=== PATIENT | female | born 2000 | race Hispanic/Latino ===

== ENCOUNTER 2019-06-22 21:34 | Inpatient (IN) | payer MEDICAID ==
[~2019-06-22] VITALS: Ht 149.9 cm; Wt 45.9 kg
[2019-06-22 22:32] LABS: BASOPHILS % (AUTO) 0.5 % (0.0-5.0); HEMATOCRIT 37.4 % (36-48); LYMPHOCYTES % (AUTO) 10.5 % (21.0-51.0); MEAN CORPUSCULAR HEMOGLOBIN 26.8 pg (27.0-33.0); MEAN CORPUSCULAR HGB CONC 32.6 g/dL (32.0-36.0); MONOCYTES % (AUTO) 16.8 % (3.0-13.0); NEUTROPHILS % (AUTO) 67.8 % (40.0-77.0); PLATELET COUNT (AUTO) 240 K/uL (130-400); RED BLOOD CELL COUNT(AUTO) 4.56 MIL/uL (4.00-5.50)
[2019-06-22 22:35] LABS: CARBON DIOXIDE 21 mmol/L (21-32); CHLORIDE 101 mmol/L (101-111); CREATININE 0.7 mg/dL (0.5-1.5); GLOMERULAR FILTR. RATE CALC 113 mL/min (>60); GLUCOSE,RANDOM 126 mg/dL (70-105); POTASSIUM 3.2 mmol/L (3.5-5.1); SODIUM SERUM 137 mmol/L (136-145); UREA NITROGEN, BLOOD 11 mg/dL (7-18)
[2019-06-22 22:40] LABS: APPEARANCE,URINE Clear (CLEAR); BILIRUBIN,URINE Negative (NEGATIVE); COLOR,URINE Yellow (YELLOW); GLUCOSE, URINE (UA) Negative (NEGATIVE); KETONES,URINE Negative (NEGATIVE); LEUKOCYTE ESTERASE ,URINE Negative (NEGATIVE); NITRATE,URINE Negative (NEGATIVE); OCCULT BLOOD,URINE Negative (NEGATIVE); PROTEIN,URINE Negative (NEGATIVE); UROBILINOGEN,URINE 0.2 mg/dL (0.2-1.0)
[2019-06-22 22:44] LABS: AMPHET/METH SCREEN,URINE NEGATIVE (NEGATIVE); BARBITURATE SCREEN, URINE NEGATIVE (NEGATIVE); BENZODIAZEPINES SCREEN,URINE NEGATIVE (NEGATIVE); CANNABINOID SCREEN,URINE NEGATIVE (NEGATIVE); COCAINE SCREEN,URINE NEGATIVE (NEGATIVE); OPIATE SCREEN,URINE NEGATIVE (NEGATIVE); PHENCYCLIDINE SCREEN,URINE NEGATIVE (NEGATIVE)
[2019-06-22 22:47] LABS: HCG,QUAL RESULT NEGATIVE (NEGATIVE)
[2019-06-22 22:53] LABS: ALANINE AMINOTRANSFERASE 13 U/L (12-78); ALBUMIN 4.2 g/dL (3.5-5.0); ALCOHOL, BLOOD < 3 mg/dL (0-10); ASPARTATE AMINOTRANSFERASE 17 U/L (10-37); BILIRUBIN,TOTAL 0.2 mg/dL (0.2-1.0)
[2019-06-22 22:58] LABS: SALICYLATE < 2.8 mg/dL (2.8-20.0)
[2019-06-22 22:59] LABS: ACETAMINOPHEN 456 mcg/mL (10-30)
[2019-06-22 23:52] LABS: INR 0.99 (0.85-1.15); PROTHROMBIN TIME 10.7 SEC (9.6-11.6)
[2019-06-22] MEDS ORDERED: ACETYLCYSTEINE 20% 200MG/ML 4ML VIAL ONE (23:58)
[2019-06-22] MEDS ORDERED: ACETYLCYSTEINE 20% 200MG/ML 30ML VIAL ONE (23:58)
[2019-06-23] MEDS ORDERED: ONDANSETRON HCL 4 MG/2 ML VIAL ONE (00:59)
[2019-06-23] MEDS: SODIUM CHLORIDE 0.9% 1000ML 1,000 ML IV SCH ×2 (01:29→07:55)
[2019-06-23] MEDS ORDERED: DiphenhydrAMINE HCL 50 MG/ML VIAL IV PRN (01:30)
[2019-06-23] MEDS ORDERED: ONDANSETRON HCL 4 MG/2 ML VIAL IV PRN (01:30)
[2019-06-23] MEDS ORDERED: SODIUM CHLORIDE 0.9% 1000ML 1,000 ML IV SCH ×2 (01:30)
[2019-06-23] MEDS ORDERED: NITROGLYCERIN 0.4 MG SL TAB SL PRN (01:30)
[2019-06-23] MEDS ORDERED: DEXTROSE 5 % AND 0.9 % NACL 1,000 ML IV ONE (02:20)
[2019-06-23] MEDS ORDERED: ACETYLCYSTEINE 20% 200MG/ML 30ML VIAL ONE (02:56)
[2019-06-23 04:39] VITALS: BP 145/71
[2019-06-23 07:02] LABS: HEMATOCRIT 36.9 % (36-48); MEAN CORPUSCULAR HEMOGLOBIN 26.8 pg (27.0-33.0); MEAN CORPUSCULAR HGB CONC 33.1 g/dL (32.0-36.0); MEAN CORPUSCULAR VOLUME 81.1 fL (80-100); PLATELET COUNT (AUTO) 254 K/uL (130-400); RED BLOOD CELL COUNT(AUTO) 4.55 MIL/uL (4.00-5.50); RED CELL DISTRIBUTION WIDTH 12.7 % (11.0-15.5); WHITE BLOOD COUNT (AUTO) 7.7 K/uL (4.8-10.8)
[2019-06-23 07:16] VITALS: BP_SYST 119; BP_SYST 19; BP_DIAS 77
[2019-06-23] MEDS ORDERED: DEXTROSE 5% IV SCH (07:30)
[2019-06-23] MEDS ORDERED: ACETYLCYSTEINE IV SCH (07:30)
[2019-06-23] MEDS ORDERED: WATER IV SCH (07:30)
[2019-06-23 07:33] LABS: INR 1.12 (0.85-1.15); PARTIAL THROMBOPLASTIN TIME 29.1 SEC (26.3-35.5)
[2019-06-23 07:34] LABS: ALBUMIN 3.7 g/dL (3.5-5.0); BILIRUBIN,TOTAL 0.3 mg/dL (0.2-1.0); CREATININE 0.6 mg/dL (0.5-1.5); MAGNESIUM 1.9 mg/dL (1.80-2.40); POTASSIUM 3.4 mmol/L (3.5-5.1); TOTAL PROTEIN, SERUM 7.6 g/dL (6.0-8.3)
--- NOTE | 2019-06-23 07:48 | NUR ---
1:1 SITTER AT [facility] Addendum: 06/23/19 at 0749 by SHYANNE WHEELER RN RN Amended: Links added.
--- NOTE | 2019-06-23 07:50 | NUR ---
ASSESSMENT PT IS AAOX3 DENIES CP DENIES SOB DENIES NV NO COMPLAINTS RESTING IN BED. BREATHING PATTERN IS EVEN AND UNLABORED. NO VISIBLE SIGNS OF DISTRESS NOTED, CALL LIGHT WITHIN REACH. 1:1 SITTER IS AT BEDSIDE. SUICIDE PRECAUTIONS IN PLACE.
[2019-06-23] MEDS: FAMOTIDINE/PF 20 MG/2 ML VIAL IV SCH ×2 (07:53→19:47)
[2019-06-23] MEDS: ENOXAPARIN SODIUM 30 MG/0.3 ML SQ SCH (07:53)
[2019-06-23 08:20] LABS: BAND NEUTROPHILS % (MANUAL) 1 % (0-2); BASOPHILS % (MANUAL) 1 % (0-2); LYMPHOCYTES % (MANUAL) 18 % (22-44); MAN.DIFF COMMENT-IMPRESSION MANUAL DIFFERENTIAL; MONOCYTES % (MANUAL) 7 % (2-9); PLATELET MORPHOLOGY COMMENT ADEQUATE; REACTIVE LYMPHOCYTES 2 % (0-0); SEGMENTED NEUTROPHILS % 71 % (40-70)
--- NOTE | 2019-06-23 10:55 | NUR ---
LOVENOX GIVEN WITH FEMALE AIDE AT BEDSIDE 1:1 SITTER FEMALE AIDE AT BEDSIDE
[2019-06-23 11:40] VITALS: BP 115/67
[2019-06-23 15:13] VITALS: BP 114/79
--- NOTE | 2019-06-23 16:38 | NUR ---
Overdose BONNIE met with patient. Patient admitted to intentionally taking 80 tablets of Tylenol. Patient states she had gone to see MD earlier due to experiencing cough and fever and had obtained Tylenol to help with symptoms. She admits that she had been planning for a while to harm self but had planned to cut self rather than overdose. She states that she took Tylenol because pills were available to her. Patient admits that this is not her first attempt to kill herself. She informed SW that she had attempted about 6 years ago when she attempted to overdose on Ibuprofen. Patient states she was living with her father at the time and it was father who called hospital and took her to ER. Patient states she attempted to harm self because she felt guilty after she claims she saw her grandfather fall and hurt his head and did nothing to help him for a few minutes. She states she still carries this guilt today and states that grandfather's was her fault. Patient states she has never been blamed for grandfather's but she feels she did not assist fast enough and that is what caused grandfather to . Patient later admitted that she had attempted several other times before and has been at several psychiatric hospitals: [facility], [facility], [facility], [facility] and most recently [facility]. Patient reports that she suffers from Bipolar, Schizophrenia, Major Depression and anxiety. She states she is under the care of Psychiatrist, Shashank Garcia. Patient also states she has been receiving counseling X 2 a [address] from [address], Counselor. Patient also admits to experiencing auditory and visual hallucinations. Patient states she hears "several" voiced speaking to her - insulting her and telling her to harm herself. She states that the only thing that helps her not hear voices is taking showers. Patient also admits to seeing several shadows around her but admits shadows appear more at night than during the day. Patient states she covers her head when she sleeps so she doesn't see the shadows. She reports that she is still able to sleep about 8-10 hours at night and has been eating well. Patient admits to BONNIE that she is still experiencing suicidal ideations and plans to kill herself by cutting herself when she has the opportunity. BONNIE informed patient that once she is medically cleared she can be referred to [facility] or another psychiatric hospital due to her present suicidal ideations. Patient in agreement. Patient presently on 1:1 observation. SW will continue to follow up with patient.
[2019-06-23 19:36] VITALS: BP 110/56
--- NOTE | 2019-06-23 20:10 | NUR ---
lab called for lab draw due at 1900 informed lab of pending acetaminophen , lft and coag labs to be drawn
--- NOTE | 2019-06-23 20:25 | NUR ---
poison control center follow up baron from poison control called to follow up on patients latest lft levels, informed him that labs were pending to be drawn baron stated he would call back later to follow up on labs
[2019-06-23 21:00] LABS: INR 1.14 (0.85-1.15); PARTIAL THROMBOPLASTIN TIME 30.6 SEC (26.3-35.5); PROTHROMBIN TIME 12.2 SEC (9.6-11.6)
[2019-06-23 21:07] LABS: ALBUMIN 3.5 g/dL (3.5-5.0); BILIRUBIN,DIRECT 0.1 mg/dL (0.0-0.3); BILIRUBIN,TOTAL 0.2 mg/dL (0.2-1.0); TOTAL PROTEIN, SERUM 7.1 g/dL (6.0-8.3)
--- NOTE | 2019-06-23 22:09 | NUR ---
patient cleared as per poison control spoke with baron from poison control center out of [place] reviewed patients latest labs : acetaminophen, lfts and coag panel baron stated that once liter ns bag with acetylcysteine is completed then she has completed her therapy and she may resume a diet
[2019-06-23 23:23] VITALS: BP 125/65
[2019-06-24 03:07] VITALS: BP 98/52
[2019-06-24 03:53] LABS: BASOPHILS % (AUTO) 0.6 % (0.0-5.0); EOSINOPHILS % (AUTO) 7.8 % (0.0-8.0); HEMATOCRIT 36.9 % (36-48); LYMPHOCYTES % (AUTO) 23.9 % (21.0-51.0); MEAN CORPUSCULAR HEMOGLOBIN 26.9 pg (27.0-33.0); MEAN CORPUSCULAR HGB CONC 33.1 g/dL (32.0-36.0); MEAN CORPUSCULAR VOLUME 81.3 fL (80-100); MONOCYTES % (AUTO) 16.3 % (3.0-13.0); NEUTROPHILS % (AUTO) 51.2 % (40.0-77.0); PLATELET COUNT (AUTO) 255 K/uL (130-400); RED BLOOD CELL COUNT(AUTO) 4.54 MIL/uL (4.00-5.50); WHITE BLOOD COUNT (AUTO) 6.6 K/uL (4.8-10.8)
[2019-06-24 04:09] LABS: ALBUMIN 3.6 g/dL (3.5-5.0); BILIRUBIN,DIRECT 0.1 mg/dL (0.0-0.3); BILIRUBIN,TOTAL 0.3 mg/dL (0.2-1.0); CREATININE 0.6 mg/dL (0.5-1.5); POTASSIUM 3.2 mmol/L (3.5-5.1); TOTAL PROTEIN, SERUM 7.2 g/dL (6.0-8.3)
[2019-06-24 08:00] VITALS: BP 100/69
[2019-06-24] MEDS: ENOXAPARIN SODIUM 30 MG/0.3 ML SQ SCH (08:29)
[2019-06-24] MEDS: FAMOTIDINE/PF 20 MG/2 ML VIAL IV SCH ×2 (09:53→21:34)
[2019-06-24] MEDS ORDERED: POTASSIUM CHLORIDE 20 MEQ ERTAB PO SCH ×2 (10:30→17:00)
[2019-06-24 11:00] VITALS: BP 99/60
[2019-06-24 16:00] VITALS: BP 126/61
--- NOTE | 2019-06-24 17:19 | NUR ---
MEDICALLY CLEARED FOR DC- REFERRAL TO [facility] AFTER READING DR. CRUZ NOTES AND SPEAKING TO PATIENT AT BEDSIDE, [facility] CONSENT FOR [facility]. WILL SEND PACKET
[2019-06-24 19:56] VITALS: BP 108/65
[2019-06-25 00:01] VITALS: BP 108/60
[2019-06-25 04:00] VITALS: BP 96/50
[2019-06-25 05:23] LABS: BASOPHILS % (AUTO) 0.8 % (0.0-5.0); EOSINOPHILS % (AUTO) 11.4 % (0.0-8.0); HEMATOCRIT 38.9 % (36-48); LYMPHOCYTES % (AUTO) 39.1 % (21.0-51.0); MEAN CORPUSCULAR HEMOGLOBIN 27.1 pg (27.0-33.0); MEAN CORPUSCULAR HGB CONC 32.6 g/dL (32.0-36.0); MEAN CORPUSCULAR VOLUME 82.9 fL (80-100); MONOCYTES % (AUTO) 19.1 % (3.0-13.0); NEUTROPHILS % (AUTO) 29.4 % (40.0-77.0); PLATELET COUNT (AUTO) 269 K/uL (130-400); RED BLOOD CELL COUNT(AUTO) 4.69 MIL/uL (4.00-5.50); RED CELL DISTRIBUTION WIDTH 13.2 % (11.0-15.5); WHITE BLOOD COUNT (AUTO) 6.2 K/uL (4.8-10.8)
[2019-06-25 06:04] LABS: ALBUMIN 3.7 g/dL (3.5-5.0); BILIRUBIN,DIRECT 0.1 mg/dL (0.0-0.3); BILIRUBIN,TOTAL 0.2 mg/dL (0.2-1.0); CREATININE 0.7 mg/dL (0.5-1.5); POTASSIUM 4.1 mmol/L (3.5-5.1); TOTAL PROTEIN, SERUM 7.3 g/dL (6.0-8.3)
[2019-06-25] MEDS: FAMOTIDINE/PF 20 MG/2 ML VIAL IV SCH (08:17)
[2019-06-25] MEDS: ENOXAPARIN SODIUM 30 MG/0.3 ML SQ SCH (08:18)
--- NOTE | 2019-06-25 13:50 | NUR ---
INSTRUCTIONS DISCHARGE INSTRUCTIONS GIVEN TO PATIENT. REPORT HAS BEEN CALLED TO [facility] AT [facility]. IV HAS BEEN REMOVED AND [facility] IS HERE TO PICK PATIENT UP AND TRANSFER TO FACILITY. PATIENT IS STABLE AND IS EAGER TO GO.
== END 2019-06-25 14:09 | DRG 817 ==
LOC: EDH 21:34 → EDHIP 21:35 → 2DH 06-23 04:00 → 4DH 06-24 06:06
PROVIDERS: ADMIT Hospitalist; ATTEND Hospitalist
DX: T39.1X2A Poisoning by 4-Aminophenol derivatives, intentional self-harm, initial encounter (principal); R45.851 Suicidal ideations; E87.6 Hypokalemia; F20.9 Schizophrenia, unspecified; F31.9 Bipolar disorder, unspecified; F43.10 Post-traumatic stress disorder, unspecified; F60.81 Narcissistic personality disorder; F91.3 Oppositional defiant disorder; F41.9 Anxiety disorder, unspecified; Y92.89 Other specified places as the place of occurrence of the external cause
CPT/HCPCS: 36415; 80048; 80053; 80076; 80305; 81003; 81025; 83735; 85025; 85610; 85730; 93005; G0378; G0480; G0481; J0132; J1650; J2405; J3490; J7030; J7042; J7070; J7608